=== PATIENT | male | born 1980 | race Caucasian/White ===

== ENCOUNTER 2020-12-07 12:34 | Emergency (ER) | payer MEDICARE, MEDICAID ==
[~2020-12-07] VITALS: Ht 182.9 cm; Wt 172.4 kg
[~2020-12-07 12:34] MED LIST: ALPRAZOLAM 0.50.5 MG PO; ASPIRIN325; COUMADIN 5 MG TA5 M1; EFFEXOR XR75 MG PO; ENOXAPARIN100 MG/1 M SQ; FLEXERIL PO; MONOCAPS TABLE1 EACH; NEURONTIN600 MG PO; NORCO 10-325 T1 EACH; OXYCONTIN30 MG PO; PRADAXA150 MG PO; SEROQUEL 100 M100 M1 PER TUBE; VISTARIL 25 MG25 M1 PO; VITAMIN E1000 UNI3 PO; XANAX XR2 MG PO
[2020-12-07] MEDS ORDERED: ENOXAPARIN120 MG/0.8 SUBQ (12:50)
[2020-12-07] MEDS ORDERED: CEPHALEXIN500 MG PO (13:42)
[2020-12-07 13:52] VITALS: BP 144/84
== END 2020-12-07 13:53 | disposition home or self-care (01) ==
LOC: M.ERS 12:34
DX: S61.211A Laceration without foreign body of left index finger without damage to nail, initial encounter (principal); M32.9 Systemic lupus erythematosus, unspecified; Z79.899 Other long term (current) drug therapy; W26.0XXA Contact with knife, initial encounter; Y93.89 Activity, other specified; Y92.89 Other specified places as the place of occurrence of the external cause; Y99.8 Other external cause status

== ENCOUNTER 2021-01-24 20:57 | Emergency (ER) | payer MEDICARE, MEDICAID ==
[~2021-01-24] VITALS: Ht 182.9 cm; Wt 158.8 kg
[~2021-01-24 20:57] MED LIST changes: +CEPHALEXIN500 MG PO; +ENOXAPARIN120 MG/0.8 SUBQ
[2021-01-24] MEDS ORDERED: HYDROCODON-ACE1 EAC8 PO (21:35)
[2021-01-24] MEDS ORDERED: FLEXERIL PO (21:35)
[2021-01-24] MEDS ORDERED: MEDROLDOSEPACK PO (21:35)
[2021-01-24 21:42] VITALS: BP 163/98
== END 2021-01-24 21:43 | disposition home or self-care (01) ==
LOC: M.ERS 20:57
DX: M54.50 Low back pain, unspecified (principal); E66.01 Morbid (severe) obesity due to excess calories; F17.210 Nicotine dependence, cigarettes, uncomplicated; Z79.899 Other long term (current) drug therapy; Z68.42 Body mass index [BMI] 45.0-49.9, adult

== ENCOUNTER 2021-04-01 19:40 | Emergency (ER) | payer MEDICARE, MEDICAID ==
[~2021-04-01] VITALS: Ht 182.9 cm; Wt 172.4 kg
[~2021-04-01 19:40] MED LIST changes: +HYDROCODON-ACE1 EAC8 PO; +MEDROLDOSEPACK PO
[2021-04-01 22:32] VITALS: BP 121/90
[2021-04-02] MEDS ORDERED: ENOXAPARIN150 MG/1 M (10:12)
== END 2021-04-01 22:32 | disposition left against medical advice (07) ==
LOC: M.ERS 19:40
DX: M79.605 Pain in left leg (principal); Z86.718 Personal history of other venous thrombosis and embolism; Z53.21 Procedure and treatment not carried out due to patient leaving prior to being seen by health care provider

== ENCOUNTER 2021-04-02 10:04 | Emergency (ER) | payer MEDICARE, MEDICAID ==
[~2021-04-02] VITALS: Ht 182.9 cm; Wt 127.0 kg
[2021-04-02 10:09] VITALS: BP 138/85
[2021-04-02] MEDS ORDERED: ENOXAPARIN150 MG/1 M (10:12)
== END 2021-04-02 12:14 | disposition left against medical advice (07) ==
LOC: M.ERS 10:04
DX: M79.605 Pain in left leg (principal); Z53.21 Procedure and treatment not carried out due to patient leaving prior to being seen by health care provider